=== PATIENT | female | born 1990 | race Caucasian/White ===

== ENCOUNTER 2017-04-13 06:56 | Emergency (ER) | payer MEDICARE, OTHER ==
[~2017-04-13] VITALS: Ht 170.2 cm; Wt 64.5 kg
[2017-04-13] MEDS ORDERED: QUET100T4 PO (07:38)
[2017-04-13] MEDS ORDERED: CLON1TAB PO (07:38)
[2017-04-13] MEDS ORDERED: SODIUM CHLORIDE 0.9% 1,000 ML IV ONE (07:39)
[2017-04-13] MEDS ORDERED: ONDANSETRON 2MG/ML, 2ML ONE (07:44)
[2017-04-13] MEDS ORDERED: FAMOTIDINE 20 MG/2 ML ONE (07:44)
[2017-04-13] MEDS ORDERED: ONDANSETRON 2MG/ML, 2ML IVPush ONE (08:00)
[2017-04-13] MEDS ORDERED: FAMOTIDINE 20 MG/2 ML IVP ONE (08:00)
[2017-04-13] MEDS ORDERED: SODIUM CHLORIDE 0.9% 1,000ML IVBOLUS ONE (08:00)
[2017-04-13 08:06] LABS: HEMATOCRIT 43.2 % (34.6-47.8); WHITE BLOOD COUNT 6.3 x10^3/uL (3.4-10)
[2017-04-13 08:12] LABS: BLOOD UREA NITROGEN 15 mg/dL (7-18)
[2017-04-13 08:17] LABS: ASPARTATE AMINO TRANSFERASE 19 U/L (15-37)
[2017-04-13] MEDS ORDERED: ACETAMINOPHEN 325 MG TABLET ONE (08:54)
[2017-04-13] MEDS ORDERED: ACETAMINOPHEN 325 MG TABLET PO ONE (09:00)
[2017-04-13 09:23] VITALS: BP 120/80
== END 2017-04-13 09:26 | disposition home or self-care (01) ==
LOC: ED 08:06
DX: Z33.1 Pregnant state, incidental (principal); K52.9 Noninfective gastroenteritis and colitis, unspecified; N30.00 Acute cystitis without hematuria
CPT/HCPCS: 36415; 80053; 81001; 83690; 84702; 84703; 85025; 87086; 96361; 96374; 96375; 99284; J2405; J7030; S0028

== ENCOUNTER 2017-12-08 22:10 | Emergency (ER) | payer OTHER ==
[~2017-12-08] VITALS: Ht 172.7 cm; Wt 59.6 kg
[~2017-12-08 22:10] MED LIST: CLON1TAB PO; QUET100T4 PO
[2017-12-08] MEDS ORDERED: METOCLOPRAMIDE 5 MG/ML, 2ML ONE (22:48)
[2017-12-08] MEDS ORDERED: ONDANSETRON ODT 4 MG ONE (22:48)
[2017-12-08] MEDS ORDERED: LORazepam 2 MG/ML, 1ML ONE (22:49)
[2017-12-08 22:54] LABS: MEAN CORPUSCULAR HEMOGLOBIN 32.9 pg (27.0-34.8); MEAN CORPUSCULAR HGB CONC 34.4 g/dL (32.4-35.8); MEAN CORPUSCULAR VOLUME 95.6 fL (80-100); MEAN PLATELET VOLUME 8.7 fL (7.4-10.4); PLATELET COUNT 357 x10^3/uL (130-400); RED BLOOD COUNT 5.28 x10^6/uL (3.82-5.3); RED CELL DISTRIBUTION WIDTH 13.5 % (9.6-15.2)
[2017-12-08] MEDS ORDERED: METOCLOPRAMIDE 5 MG/ML, 2ML IVPush ONE (23:00)
[2017-12-08] MEDS ORDERED: SODIUM CHLORIDE FLUSH 10ML SYR IVF ONE (23:00)
[2017-12-08] MEDS ORDERED: LORazepam 2 MG/ML, 1ML IVPush ONE (23:00)
[2017-12-08] MEDS ORDERED: SODIUM CHLORIDE 0.9% 1,000ML IVBOLUS ONE (23:00)
[2017-12-08] MEDS ORDERED: ONDANSETRON ODT 4 MG PO ONE (23:00)
[2017-12-08 23:18] LABS: ALANINE AMINOTRANSFERASE 22 U/L (12-78); ALBUMIN 5.1 g/dL (3.4-5.0); ANION GAP 11 mmol/L (5-15); CALCIUM 10.1 mg/dL (8.5-10.1); CHLORIDE 101 mmol/L (98-107); CREATININE 1.21 mg/dL (0.55-1.02)
[2017-12-08 23:23] LABS: ALKALINE PHOSPHATASE 48 U/L (45-117); BILIRUBIN,TOTAL 0.9 mg/dL (0.2-1.0); TOTAL PROTEIN 9.3 g/dL (6.4-8.2)
[2017-12-08 23:24] LABS: BASOPHILS # (AUTO) 0.01 x10^3/uL (0-0.1); BASOPHILS % (AUTO) 0 % (0-1); EOSINOPHILS % (AUTO) 0 % (1-7); LYMPHOCYTES # (AUTO) 1.21 x10^3/uL (1-3.4); LYMPHOCYTES % (AUTO) 7 % (22-44); MD SCAN; MONOCYTES # (AUTO) 0.89 x10^3/uL (0.2-0.8); MONOCYTES % (AUTO) 5 % (2-9); NEUTROPHILS # (AUTO) 15.97 x10^3/uL (1.8-6.8); NEUTROPHILS % (AUTO) 88 % (42-75)
[2017-12-08 23:45] VITALS: BP 126/83
== END 2017-12-08 23:51 | disposition home or self-care (01) ==
LOC: ED 23:18
DX: F43.22 Adjustment disorder with anxiety (principal); R11.2 Nausea with vomiting, unspecified; F41.1 Generalized anxiety disorder
CPT/HCPCS: 36415; 80053; 83690; 84703; 85025; 93005; 96361; 96374; 96375; 99285; J2060; J2765; J7030; Q0162

== ENCOUNTER 2018-12-07 23:01 | Emergency (ER) | payer SELFPAY ==
[~2018-12-07] VITALS: Ht 170.2 cm; Wt 67.5 kg
--- NOTE | 2018-12-07 23:16 | NUR ---
PT MEDICATED WITH ZOFRAN IN TRIAGE FOR DRY HEAVING.
[2018-12-07] MEDS ORDERED: LORazepam 2 MG/ML, 1ML ONE (23:36)
[2018-12-07] MEDS ORDERED: ONDANSETRON 2MG/ML, 2ML ONE (23:37)
[2018-12-08] MEDS ORDERED: SODIUM CHLORIDE FLUSH 10ML SYR IVF ONE
[2018-12-08] MEDS ORDERED: ONDANSETRON 2MG/ML, 2ML IVPush ONE
[2018-12-08] MEDS ORDERED: LORazepam 2 MG/ML, 1ML IVPush ONE
[2018-12-08] MEDS ORDERED: SODIUM CHLORIDE 0.9% 1,000ML IVBOLUS ONE
[2018-12-08 00:01] LABS: ALANINE AMINOTRANSFERASE 20 U/L (12-78); ALBUMIN 4.6 g/dL (3.4-5.0); ANION GAP 14 mmol/L (5-15); CALCIUM 9.1 mg/dL (8.5-10.1); CHLORIDE 109 mmol/L (98-107)
[2018-12-08 00:03] LABS: ALKALINE PHOSPHATASE 48 U/L (45-117); BILIRUBIN,TOTAL 0.6 mg/dL (0.2-1.0); MEAN CORPUSCULAR HEMOGLOBIN 31.4 pg (27.0-34.8); MEAN PLATELET VOLUME 7.8 fL (7.4-10.4); PLATELET COUNT 354 x10^3/uL (130-400); RED BLOOD COUNT 4.77 x10^6/uL (3.82-5.3); RED CELL DISTRIBUTION WIDTH 12.4 % (9.6-15.2); TOTAL PROTEIN 8.8 g/dL (6.4-8.2)
[2018-12-08 00:33] LABS: BASOPHILS # (AUTO) 0.02 x10^3/uL (0-0.1); BASOPHILS % (AUTO) 0 % (0-1); EOSINOPHILS % (AUTO) 0 % (1-7); LYMPHOCYTES # (AUTO) 2.17 x10^3/uL (1-3.4); LYMPHOCYTES % (AUTO) 15 % (22-44); MD SCAN; MONOCYTES % (AUTO) 5 % (2-9); NEUTROPHILS # (AUTO) 11.94 x10^3/uL (1.8-6.8); NEUTROPHILS % (AUTO) 81 % (42-75)
--- NOTE | 2018-12-08 00:33 | NUR ---
REPORT RECEIVED FROM OLVIN YOUNG.
[2018-12-08] MEDS ORDERED: BENZONATATE 100 MG CAPSULE ONE (00:35)
--- NOTE | 2018-12-08 00:41 | NUR ---
PT MEDICATED PER EMAR FOR COUGH. PT TOLERATED WELL.
[2018-12-08 00:59] LABS: CULTURE INDICATED? YES; HCG UR SG 1.025 (1.003-1.030); MICROSCOPIC AUTO
[2018-12-08] MEDS ORDERED: BENZONATATE 100 MG CAPSULE PO ONE (01:00)
[2018-12-08 01:31] VITALS: BP 115/70
--- NOTE | 2018-12-08 01:45 | NUR ---
PT GIVEN DC INTRUSTIONS AND SCRIPT. PT EDUCATED REGARDING DC MEDICATION. PT'S AOX4. RESPS EVEN AND UNLABORED. NO ACUTE DISTRESS AT DC.
== END 2018-12-08 01:46 | disposition home or self-care (01) ==
LOC: ED 12-08 00:11
DX: R11.2 Nausea with vomiting, unspecified (principal); F14.10 Cocaine abuse, uncomplicated
CPT/HCPCS: 36415; 71045; 80053; 81001; 81025; 83690; 85025; 85379; 87086; 93005; 96361; 96374; 96375; 99284; J2060; J2405; J7030

== ENCOUNTER 2018-12-25 07:02 | Emergency (ER) | payer OTHER ==
[~2018-12-25] VITALS: Ht 170.2 cm; Wt 65.3 kg
[2018-12-25 07:14] VITALS: BP 125/77
[2018-12-25 07:52] LABS: BASOPHILS # (AUTO) 0.02 x10^3/uL (0-0.1); BASOPHILS % (AUTO) 0 % (0-1); EOSINOPHILS % (AUTO) 0 % (1-7); LYMPHOCYTES # (AUTO) 1.61 x10^3/uL (1-3.4); LYMPHOCYTES % (AUTO) 23 % (22-44); MD NO; MEAN CORPUSCULAR HEMOGLOBIN 31.5 pg (27.0-34.8); MEAN CORPUSCULAR HGB CONC 33.2 g/dL (32.4-35.8); MEAN CORPUSCULAR VOLUME 94.8 fL (80-100); MEAN PLATELET VOLUME 7.8 fL (7.4-10.4); MONOCYTES # (AUTO) 0.32 x10^3/uL (0.2-0.8); MONOCYTES % (AUTO) 5 % (2-9); NEUTROPHILS # (AUTO) 4.95 x10^3/uL (1.8-6.8); NEUTROPHILS % (AUTO) 72 % (42-75); PLATELET COUNT 313 x10^3/uL (130-400); RED BLOOD COUNT 4.62 x10^6/uL (3.82-5.3); RED CELL DISTRIBUTION WIDTH 12.5 % (9.6-15.2)
[2018-12-25 08:03] LABS: ANION GAP 6 mmol/L (5-15); CALCIUM 8.9 mg/dL (8.5-10.1); CHLORIDE 109 mmol/L (98-107)
[2018-12-25 08:09] LABS: CREATININE 0.87 mg/dL (0.55-1.02)
--- NOTE | 2018-12-25 08:13 | NUR ---
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 PT STATES SHE IS HAVING TROUBLE URINATING. PT WAS ABLE TO PROVIDE A SMALL URINE SAMPLE.
[2018-12-25 08:31] LABS: MICROSCOPIC AUTO
[2018-12-25 08:33] LABS: CULTURE INDICATED? YES
--- NOTE | 2018-12-25 08:45 | NUR ---
PT DISCHARGED WITH DISCHARGE INSTRUCTIONS AND FOLLOW UP INSTRUCTIONS.
== END 2018-12-25 08:48 | disposition home or self-care (01) ==
LOC: ED 07:41
DX: E86.0 Dehydration (principal); N39.8 Other specified disorders of urinary system; F43.20 Adjustment disorder, unspecified; Z90.89 Acquired absence of other organs
CPT/HCPCS: 36415; 80048; 81001; 84703; 85025; 87086; 99283

== ENCOUNTER 2018-12-25 16:03 | Emergency (ER) | payer OTHER ==
[~2018-12-25] VITALS: Ht 170.2 cm; Wt 63.6 kg
[2018-12-25] MEDS ORDERED: FAMOTIDINE 20 MG/2 ML ONE (16:39)
[2018-12-25] MEDS ORDERED: ONDANSETRON 2MG/ML, 2ML ONE (16:39)
[2018-12-25 16:53] LABS: BASOPHILS # (AUTO) 0.02 x10^3/uL (0-0.1); BASOPHILS % (AUTO) 0 % (0-1); EOSINOPHILS % (AUTO) 0 % (1-7); LYMPHOCYTES # (AUTO) 2.08 x10^3/uL (1-3.4); LYMPHOCYTES % (AUTO) 17 % (22-44); MD NO; MEAN CORPUSCULAR HEMOGLOBIN 31.9 pg (27.0-34.8); MEAN CORPUSCULAR VOLUME 96.7 fL (80-100); MEAN PLATELET VOLUME 7.8 fL (7.4-10.4); MONOCYTES # (AUTO) 0.67 x10^3/uL (0.2-0.8); MONOCYTES % (AUTO) 5 % (2-9); NEUTROPHILS # (AUTO) 9.76 x10^3/uL (1.8-6.8); NEUTROPHILS % (AUTO) 78 % (42-75); PLATELET COUNT 356 x10^3/uL (130-400); RED BLOOD COUNT 4.98 x10^6/uL (3.82-5.3); RED CELL DISTRIBUTION WIDTH 13.4 % (9.6-15.2)
--- NOTE | 2018-12-25 16:58 | NUR ---
pt here today for n/v. was here this morning, discharged with dehydration. states vomitting has not resolved. states she binge drinks weekly and that her mother two months ago and this is how she is handling it. pt is tearful and communicating openly. pt states she has been drinking since before mother . pt given substance abuse information sheet. pt states she wants to quit drinking. piv started. pt medicated per emar. pt going to ct now.
[2018-12-25] MEDS ORDERED: ONDANSETRON 2MG/ML, 2ML IVPush ONE (17:00)
[2018-12-25] MEDS ORDERED: SODIUM CHLORIDE 0.9% 1,000ML IVBOLUS ONE (17:00)
[2018-12-25] MEDS ORDERED: FAMOTIDINE 20 MG/2 ML IVP ONE (17:00)
[2018-12-25] MEDS ORDERED: SODIUM CHLORIDE FLUSH 10ML SYR IVF ONE (17:00)
[2018-12-25 17:04] LABS: ALANINE AMINOTRANSFERASE 24 U/L (12-78); ALBUMIN 5.1 g/dL (3.4-5.0); ANION GAP 7 mmol/L (5-15); CALCIUM 9.7 mg/dL (8.5-10.1); CHLORIDE 106 mmol/L (98-107); CREATININE 1.02 mg/dL (0.55-1.02)
[2018-12-25 17:06] VITALS: BP 126/79
[2018-12-25 17:07] LABS: ALKALINE PHOSPHATASE 44 U/L (45-117); BILIRUBIN,TOTAL 0.8 mg/dL (0.2-1.0); TOTAL PROTEIN 9.2 g/dL (6.4-8.2)
--- NOTE | 2018-12-25 17:07 | NUR ---
PT BACK FROM [place]. RESTING ON GUKATRIN. ALISHA. VSS. CALL LIGHT IN REACH. ASKED TO PROVIDE URINE SAMPLE. STATES SHE DOES NOT NEED TO URINATE NOW BUT WILL CALL WHEN READY.
--- NOTE | 2018-12-25 17:10 | NUR ---
PT GIVEN WATER, OK PER WHO STATED PT SHOULD SIP WATER ONLY. PT AWARE OF NEED TO DRINK SLOWLY. NADN. VSS. DENIES ANY OTHER NEED. CALL LIGHT IN REACH.
--- NOTE | 2018-12-25 17:50 | NUR ---
PT COMPLAINS OF IV SITE DISCOMFORT. FLUIDS STOPPED. 750CC IN. NO NAUSEA NOTED AT THIS TIME. PT ABLE TO TAKE SIPS OF WATER, NO EMESIS.
[2018-12-25] MEDS ORDERED: LORazepam 2 MG/ML, 1ML ONE (18:00)
[2018-12-25] MEDS ORDERED: LORazepam 2 MG/ML, 1ML IVPush ONE (18:00)
--- NOTE | 2018-12-25 18:08 | NUR ---
pt medicated per emar. pt aware of d/c plan. piv removed. pt dressed.
== END 2018-12-25 18:37 | disposition home or self-care (01) ==
LOC: ED 17:50
DX: F10.229 Alcohol dependence with intoxication, unspecified (principal); Y90.0 Blood alcohol level of less than 20 mg/100 ml; R11.2 Nausea with vomiting, unspecified; F31.9 Bipolar disorder, unspecified; F41.1 Generalized anxiety disorder
CPT/HCPCS: 36415; 74021; 80053; 83690; 85025; 96361; 96374; 96375; 99284; J2060; J2405; J3490; J7030